=== PATIENT | male | born 1930 | race Hispanic/Latino ===

== ENCOUNTER 2018-04-22 14:50 | Inpatient (IN) | payer MEDICARE ==
[~2018-04-22] VITALS: Ht 175.3 cm; Wt 72.4 kg
[~2018-04-22 14:50] MED LIST: ACET-2900 PO; ACET-66 PO; AEC81 PO; AUD IH; BENZ1LOZ68 MM; BETA1TAB18 PO; CARB1DRO4 OP; DEXT1DRO OP; DOCU100C33 PO; FERR325T22 PO; FLUO40CA7 PO; FURO40TA5 PO; GLIP10TA9 PO; GUAI100S13 PO; GUAI100S42 PO; INSU100I3 SQ; INSU100V12 SQ; MAGN400O17 PO; MIRT15 PO; OLOP2.5D OP; PERID15L MM; POTA20TA12 PO; PREG50 PO; TRAM50TA4 PO
[2018-04-22] MEDS ORDERED: IPRATROPIUM/ALBUTEROL SULFATE 3 ML SOLUTION IH ONE (15:32)
[2018-04-22 15:45] LABS: BASOPHILS % (AUTO) 0.5 % (0.0-5.0); EOSINOPHILS % (AUTO) 0.3 % (0.0-8.0); HEMATOCRIT 40.9 % (42-54); LYMPHOCYTES % (AUTO) 10.4 % (21.0-51.0); MEAN CORPUSCULAR HEMOGLOBIN 30.1 pg (27.0-33.0); MEAN CORPUSCULAR HGB CONC 33.2 g/dL (32.0-36.0); MEAN CORPUSCULAR VOLUME 90.7 fL (79-99); MONOCYTES % (AUTO) 3.4 % (3.0-13.0); NEUTROPHILS % (AUTO) 85.4 % (40.0-77.0); NUCLEATED RED BLOOD CELLS 0.1 % (0.0-0.19); PLATELET COUNT (AUTO) 358 K/uL (130-400); RED BLOOD CELL COUNT(AUTO) 4.51 MIL/uL (4.50-6.20); RED CELL DISTRIBUTION WIDTH 15.4 % (11.0-15.5); WHITE BLOOD COUNT (AUTO) 12.8 K/uL (4.8-10.8)
[2018-04-22 15:55] LABS: CREATININE 0.7 mg/dL (0.5-1.5); POTASSIUM 3.5 mmol/L (3.5-5.1)
[2018-04-22 16:03] LABS: ALBUMIN 2.2 g/dL (3.5-5.0); BILIRUBIN,TOTAL 0.5 mg/dL (0.2-1.0); TOTAL PROTEIN, SERUM 6.6 g/dL (6.0-8.3)
[2018-04-22 16:17] LABS: APPEARANCE,URINE Clear (CLEAR); BILIRUBIN,URINE Negative (NEGATIVE); COLOR,URINE Dark Yellow (YELLOW); GLUCOSE, URINE (UA) Negative (NEGATIVE); KETONES,URINE Trace mg/dL (NEGATIVE); LEUKOCYTE ESTERASE ,URINE Negative (NEGATIVE); NITRATE,URINE Negative (NEGATIVE); OCCULT BLOOD,URINE Negative (NEGATIVE); PH,URINE 5.5 (5.0-8.0); PROTEIN,URINE Negative (NEGATIVE)
[2018-04-22] MEDS ORDERED: SODIUM CHLORIDE 0.9% 1000ML 1,000 ML IV ONE (17:31)
[2018-04-22] MEDS ORDERED: CEFTRIAXONE SODIUM 1 GM ONE (17:31)
[2018-04-22] MEDS ORDERED: AZITHROMYCIN 250 MG TABLET PO ONE (17:32)
[2018-04-22] MEDS: LEVOFLOXACIN 500 MG/D5W 100 ML 100 ML IV SCH (18:45)
[2018-04-22] MEDS ORDERED: ACETAMINOPHEN-CODEINE 300/30MG TAB PO PRN (18:45)
[2018-04-22] MEDS ORDERED: ONDANSETRON HCL 4 MG/2 ML VIAL IV PRN (18:45)
[2018-04-22] MEDS ORDERED: LEVOFLOXACIN 500 MG/D5W 100 ML 100 ML ONE (21:12)
[2018-04-22] MEDS: IPRATROPIUM/ALBUTEROL SULFATE 3 ML SOLUTION IH SCH (21:30)
[2018-04-22] MEDS: BUDESONIDE 0.5 MG/2 ML INH IH SCH (21:38)
[2018-04-22 23:13] VITALS: BP 113/63
[2018-04-23] VITALS (7 sets, daily range): BP systolic 100–126; BP diastolic 56–72
[2018-04-23] MEDS ORDERED: MEGE20TA PO (00:57)
[2018-04-23] MEDS ORDERED: GUAI600T50 PO (00:57)
[2018-04-23] MEDS ORDERED: METH4TAB PO (00:57)
[2018-04-23] MEDS ORDERED: METH4TAB3 PO (00:57)
[2018-04-23] MEDS ORDERED: MELA5TAB14 PO (00:57)
[2018-04-23] MEDS ORDERED: LACT1CAP78 PO (00:57)
[2018-04-23] MEDS ORDERED: METF-446 PO (00:57)
[2018-04-23] MEDS: IPRATROPIUM/ALBUTEROL SULFATE 3 ML SOLUTION IH SCH ×3 (01:31→10:00)
[2018-04-23 02:38] LABS: BASOPHILS % (AUTO) 0.5 % (0.0-5.0); EOSINOPHILS % (AUTO) 0.4 % (0.0-8.0); HEMATOCRIT 38.2 % (42-54); LYMPHOCYTES % (AUTO) 8.9 % (21.0-51.0); MEAN CORPUSCULAR HEMOGLOBIN 29.6 pg (27.0-33.0); MEAN CORPUSCULAR HGB CONC 33.1 g/dL (32.0-36.0); MEAN CORPUSCULAR VOLUME 89.5 fL (79-99); MONOCYTES % (AUTO) 3.4 % (3.0-13.0); NEUTROPHILS % (AUTO) 86.8 % (40.0-77.0); PLATELET COUNT (AUTO) 323 K/uL (130-400); RED BLOOD CELL COUNT(AUTO) 4.27 MIL/uL (4.50-6.20); RED CELL DISTRIBUTION WIDTH 15.3 % (11.0-15.5); WHITE BLOOD COUNT (AUTO) 18.4 K/uL (4.8-10.8)
[2018-04-23 02:49] LABS: CREATININE 0.7 mg/dL (0.5-1.5); MAGNESIUM 1.2 mg/dL (1.80-2.40)
[2018-04-23 03:02] LABS: POTASSIUM 2.6 mmol/L (3.5-5.1)
[2018-04-23] MEDS ORDERED: MAGNESIUM 2GM PREMIX 50ML 50 ML IV ONE (03:17)
[2018-04-23] MEDS ORDERED: POTASSIUM CHLORIDE 20MEQ/100ML 100 ML IV ONE (03:17)
[2018-04-23] MEDS: POTASSIUM CHLORIDE 20MEQ/100ML 100 ML IV PRN ×3 (06:00→16:44)
[2018-04-23] MEDS: SODIUM CHLORIDE 0.9% 1000ML 1,000 ML IV SCH ×3 (06:03→15:13)
[2018-04-23] MEDS: BUDESONIDE 0.5 MG/2 ML INH IH SCH ×2 (06:53→19:16)
[2018-04-23] MEDS ORDERED: DILTIAZEM 125MG+100 ML NS 125 ML IV SCH (08:30)
[2018-04-23] MEDS ORDERED: ENOXAPARIN SODIUM 40 MG/0.4 ML SYRINGE SQ SCH (09:00)
[2018-04-23] MEDS: PANTOPRAZOLE SODIUM 40 MG TABLET.DR PO SCH (09:11)
[2018-04-23] MEDS ORDERED: DIGOXIN 250 MCG/ML 2ML AMP IV SCH (10:30)
[2018-04-23 10:56] LABS: CREATININE 0.7 mg/dL (0.5-1.5); MAGNESIUM 1.5 mg/dL (1.80-2.40); POTASSIUM 2.9 mmol/L (3.5-5.1)
[2018-04-23] MEDS: LIDOCAINE HCL-MPF 1% 2ML VIAL IVP PRN ×2 (11:39→16:44)
[2018-04-23] MEDS: MAGNESIUM 2GM PREMIX 50ML 50 ML IV PRN ×2 (11:41→23:53)
[2018-04-23] MEDS: METOPROLOL TARTRATE 1 MG/ML 5ML VIAL IV PRN ×3 (12:17→12:31)
[2018-04-23] MEDS: METHYLPREDNISOLONE SOD SUCC 40MG/ML 1ML IVP SCH ×2 (13:47→23:15)
[2018-04-23] MEDS: ZOSYN 3.375GM+NS 50ML 50 ML IV SCH ×2 (13:47→21:37)
[2018-04-23] MEDS: IPRATROPIUM/ALBUTEROL SULFATE 3 ML SOLUTION IH PRN ×3 (14:44→21:38)
[2018-04-23] MEDS: LEVOFLOXACIN 500 MG/D5W 100 ML 100 ML IV SCH (18:35)
[2018-04-23 23:29] LABS: MAGNESIUM 1.7 mg/dL (1.80-2.40); POTASSIUM 3.8 mmol/L (3.5-5.1)
[2018-04-24] MEDS: SODIUM CHLORIDE 0.9% 1000ML 1,000 ML IV SCH ×2 (00:37→21:42)
[2018-04-24] MEDS: IPRATROPIUM/ALBUTEROL SULFATE 3 ML SOLUTION IH PRN ×4 (01:30→22:18)
[2018-04-24 04:00] VITALS: BP 113/68
[2018-04-24 04:03] LABS: HEMATOCRIT 40.5 % (42-54); LYMPHOCYTES % (AUTO) 1.9 % (21.0-51.0); MEAN CORPUSCULAR HEMOGLOBIN 30.1 pg (27.0-33.0); MEAN CORPUSCULAR HGB CONC 32.8 g/dL (32.0-36.0); MEAN CORPUSCULAR VOLUME 91.6 fL (79-99); MONOCYTES % (AUTO) 1.3 % (3.0-13.0); NEUTROPHILS % (AUTO) 96.8 % (40.0-77.0); PLATELET COUNT (AUTO) 382 K/uL (130-400); RED BLOOD CELL COUNT(AUTO) 4.42 MIL/uL (4.50-6.20); RED CELL DISTRIBUTION WIDTH 15.5 % (11.0-15.5)
[2018-04-24 04:20] LABS: ALBUMIN 2.1 g/dL (3.5-5.0); BILIRUBIN,DIRECT 0.2 mg/dL (0.0-0.3); BILIRUBIN,TOTAL 0.6 mg/dL (0.2-1.0); CREATININE 0.8 mg/dL (0.5-1.5); MAGNESIUM 2.4 mg/dL (1.80-2.40); POTASSIUM 3.8 mmol/L (3.5-5.1); TOTAL PROTEIN, SERUM 6.2 g/dL (6.0-8.3)
[2018-04-24] MEDS: METHYLPREDNISOLONE SOD SUCC 40MG/ML 1ML IVP SCH ×3 (05:26→21:52)
[2018-04-24] MEDS: ZOSYN 3.375GM+NS 50ML 50 ML IV SCH ×3 (05:26→21:41)
[2018-04-24] MEDS: BUDESONIDE 0.5 MG/2 ML INH IH SCH ×2 (06:43→22:18)
[2018-04-24] MEDS ORDERED: AMIODARONE HCL 900 MG in DEXTROSE 5%-WATER 500 ML IV SCH (07:30)
[2018-04-24] MEDS ORDERED: AMIODARONE HCL 150 MG in DEXTROSE 5%-WATER 100 ML IV SCH (07:30)
[2018-04-24 07:33] VITALS: BP 131/72
[2018-04-24] MEDS ORDERED: RIVAROXABAN 20 MG TABLET PO SCH (09:00)
[2018-04-24] MEDS: ENOXAPARIN SODIUM 40 MG/0.4 ML SYRINGE SQ SCH (09:00)
[2018-04-24] MEDS: PANTOPRAZOLE SODIUM 40 MG TABLET.DR PO SCH (09:00)
[2018-04-24 11:46] VITALS: BP 124/68
[2018-04-24 16:38] VITALS: BP 135/86
[2018-04-24 20:01] VITALS: BP 120/67
[2018-04-24] MEDS: LEVOFLOXACIN 500 MG/D5W 100 ML 100 ML IV SCH (21:42)
[2018-04-24 23:36] VITALS: BP 113/66
[2018-04-25] MEDS: IPRATROPIUM/ALBUTEROL SULFATE 3 ML SOLUTION IH PRN ×2 (02:32→06:32)
[2018-04-25] MEDS: SODIUM CHLORIDE 0.9% 1000ML 1,000 ML IV SCH ×2 (02:32→17:56)
[2018-04-25 04:00] VITALS: BP 120/70
[2018-04-25 05:05] LABS: HEMATOCRIT 39.2 % (42-54); LYMPHOCYTES % (AUTO) 2.6 % (21.0-51.0); MEAN CORPUSCULAR HEMOGLOBIN 29.1 pg (27.0-33.0); MEAN CORPUSCULAR HGB CONC 31.7 g/dL (32.0-36.0); MEAN CORPUSCULAR VOLUME 91.8 fL (79-99); MONOCYTES % (AUTO) 1.5 % (3.0-13.0); NEUTROPHILS % (AUTO) 95.9 % (40.0-77.0); PLATELET COUNT (AUTO) 433 K/uL (130-400); RED BLOOD CELL COUNT(AUTO) 4.27 MIL/uL (4.50-6.20); WHITE BLOOD COUNT (AUTO) 25.9 K/uL (4.8-10.8)
[2018-04-25] MEDS: METHYLPREDNISOLONE SOD SUCC 40MG/ML 1ML IVP SCH ×3 (05:16→21:00)
[2018-04-25] MEDS: ZOSYN 3.375GM+NS 50ML 50 ML IV SCH ×3 (05:16→20:58)
[2018-04-25 05:21] LABS: B-TYPE NATRIURETIC PEPTIDE 576 pg/mL (0-100)
[2018-04-25 05:23] LABS: ALBUMIN 2.1 g/dL (3.5-5.0); BILIRUBIN,DIRECT 0.2 mg/dL (0.0-0.3); BILIRUBIN,TOTAL 0.5 mg/dL (0.2-1.0); CREATININE 0.9 mg/dL (0.5-1.5); MAGNESIUM 1.9 mg/dL (1.80-2.40); POTASSIUM 3.6 mmol/L (3.5-5.1); TOTAL PROTEIN, SERUM 6.2 g/dL (6.0-8.3)
[2018-04-25] MEDS: POTASSIUM CHLORIDE 20MEQ/100ML 100 ML IV PRN (06:45)
[2018-04-25] MEDS: BUDESONIDE 0.5 MG/2 ML INH IH SCH ×2 (06:54→19:09)
[2018-04-25 07:36] VITALS: BP 119/65
[2018-04-25] MEDS: PANTOPRAZOLE SODIUM 40 MG TABLET.DR PO SCH (09:00)
[2018-04-25 11:29] VITALS: BP 115/53
[2018-04-25] MEDS ORDERED: LORAZEPAM 2 MG/ML 1 ML VIAL IM PRN (11:30)
[2018-04-25] MEDS ORDERED: SCOPOLAMINE HYDROBROMIDE 1 EACH ADH..PATCH TD SCH (11:30)
[2018-04-25] MEDS: ENOXAPARIN SODIUM 40 MG/0.4 ML SYRINGE SQ SCH (12:31)
[2018-04-25] MEDS: METOPROLOL TARTRATE 1 MG/ML 5ML VIAL IV SCH ×3 (12:49→23:45)
[2018-04-25 16:34] VITALS: BP 130/73
[2018-04-25] MEDS: LEVOFLOXACIN 500 MG/D5W 100 ML 100 ML IV SCH (17:42)
[2018-04-25] MEDS: INSULIN HUMULIN R 100 UNIT/ML 3ML SQ SCH ×2 (17:48→21:41)
[2018-04-25] MEDS ORDERED: SODIUM CHLORIDE 3% FOR INHALATION 4 ML/AMP VIAL.NEB IH ONE (19:08)
[2018-04-25 20:22] VITALS: BP 117/66
[2018-04-25 23:31] VITALS: BP 109/75
[2018-04-26] MEDS: LORAZEPAM 2 MG/ML 1 ML VIAL IVP PRN ×2 (02:33→13:40)
[2018-04-26 04:07] LABS: HEMATOCRIT 37.9 % (42-54); MEAN CORPUSCULAR HEMOGLOBIN 29.9 pg (27.0-33.0); MEAN CORPUSCULAR VOLUME 90.5 fL (79-99); NUCLEATED RED BLOOD CELLS 0.1 % (0.0-0.19); PLATELET COUNT (AUTO) 449 K/uL (130-400); RED BLOOD CELL COUNT(AUTO) 4.18 MIL/uL (4.50-6.20); RED CELL DISTRIBUTION WIDTH 15.9 % (11.0-15.5); WHITE BLOOD COUNT (AUTO) 24.8 K/uL (4.8-10.8)
[2018-04-26 04:08] VITALS: BP 120/67
[2018-04-26 04:43] LABS: CREATININE 0.9 mg/dL (0.5-1.5); MAGNESIUM 1.7 mg/dL (1.80-2.40); PHOSPHORUS 2.4 mg/dL (2.5-4.9); POTASSIUM 3.8 mmol/L (3.5-5.1)
[2018-04-26] MEDS: ZOSYN 3.375GM+NS 50ML 50 ML IV SCH ×2 (04:53→13:39)
[2018-04-26] MEDS: METHYLPREDNISOLONE SOD SUCC 40MG/ML 1ML IVP SCH ×3 (04:54→22:39)
[2018-04-26] MEDS: METOPROLOL TARTRATE 1 MG/ML 5ML VIAL IV SCH (05:39)
[2018-04-26] MEDS ORDERED: SODIUM CHLORIDE 3% FOR INHALATION 4 ML/AMP VIAL.NEB IH ONE (05:59)
[2018-04-26] MEDS: INSULIN HUMULIN R 100 UNIT/ML 3ML SQ SCH (06:38)
[2018-04-26] MEDS: BUDESONIDE 0.5 MG/2 ML INH IH SCH ×2 (07:04→18:55)
[2018-04-26 07:27] VITALS: BP 127/69
[2018-04-26] MEDS: ENOXAPARIN SODIUM 40 MG/0.4 ML SYRINGE SQ SCH (07:50)
[2018-04-26] MEDS: PANTOPRAZOLE SODIUM 40 MG TABLET.DR PO SCH (07:50)
[2018-04-26] MEDS ORDERED: METOPROLOL TARTRATE 25 MG TAB PO SCH (09:00)
[2018-04-26] MEDS: MAGNESIUM 2GM PREMIX 50ML 50 ML IV PRN (09:04)
[2018-04-26 11:20] VITALS: BP 103/59
[2018-04-26] MEDS: IPRATROPIUM/ALBUTEROL SULFATE 3 ML SOLUTION IH PRN (11:43)
[2018-04-26] MEDS: MORPHINE SULFATE 2 MG/ML 1ML SYG IVP PRN ×2 (12:29→14:54)
[2018-04-26 16:18] VITALS: BP 96/51
[2018-04-26] MEDS: LEVOFLOXACIN 500 MG/D5W 100 ML 100 ML IV SCH (18:17)
[2018-04-26 20:01] VITALS: BP 102/72
[2018-04-26 23:46] VITALS: BP 111/62
[2018-04-27] MEDS: MORPHINE SULFATE 2 MG/ML 1ML SYG IVP PRN ×2 (00:27→10:04)
[2018-04-27] MEDS: LORAZEPAM 2 MG/ML 1 ML VIAL IVP PRN ×2 (01:46→12:04)
[2018-04-27 04:05] VITALS: BP 101/59
[2018-04-27] MEDS: METHYLPREDNISOLONE SOD SUCC 40MG/ML 1ML IVP SCH ×2 (05:27→13:15)
[2018-04-27] MEDS: BUDESONIDE 0.5 MG/2 ML INH IH SCH (07:11)
[2018-04-27 08:14] VITALS: BP 123/52
[2018-04-27 11:41] VITALS: BP 107/72
== END 2018-04-27 16:05 | disposition hospice, inpatient (51) | DRG 871 ==
LOC: EDH 14:50 → EDHIP 18:40 → 3BH 23:00 → 2DH 04-23 10:32
PROVIDERS: ADMIT Internal Medicine; ATTEND Internal Medicine
DX: A41.9 Sepsis, unspecified organism (principal); J69.0 Pneumonitis due to inhalation of food and vomit; G82.50 Quadriplegia, unspecified; E44.1 Mild protein-calorie malnutrition; D68.59 Other primary thrombophilia; F03.90 Unspecified dementia, unspecified severity, without behavioral disturbance, psychotic disturbance, mood disturbance, and anxiety; E11.9 Type 2 diabetes mellitus without complications; E78.5 Hyperlipidemia, unspecified; E83.42 Hypomagnesemia; E87.6 Hypokalemia; I25.10 Atherosclerotic heart disease of native coronary artery without angina pectoris; I48.0 Paroxysmal atrial fibrillation; I10 Essential (primary) hypertension; J98.01 Acute bronchospasm; R13.12 Dysphagia, oropharyngeal phase; Y95 Nosocomial condition; Z66 Do not resuscitate; I34.0 Nonrheumatic mitral (valve) insufficiency; Z74.01 Bed confinement status; Z79.4 Long term (current) use of insulin; Z86.73 Personal history of transient ischemic attack (TIA), and cerebral infarction without residual deficits; Z68.23 Body mass index [BMI] 23.0-23.9, adult; Z95.1 Presence of aortocoronary bypass graft; Z79.899 Other long term (current) drug therapy
CPT/HCPCS: 31720; 36415; 71045; 80048; 80053; 80076; 80339; 81003; 82948; 83605; 83735; 83880; 84100; 84132; 84484; 85025; 85027; 87071; 87077; 87186; 87205; 92610; 93005; 93306; 94640; 94664; J0282; J0696; J1650; J1815; J1956; J2060; J2405; J2543; J2920; J3475; J3480; J3490; J7030; J7060